=== PATIENT | male | born 1980 | race Caucasian/White ===

== ENCOUNTER 2017-12-25 22:16 | Emergency (ER) | payer BC ==
[2017-12-25 23:00] VITALS: BP 102/60; PULSE 83; TEMP 98.5; BMI 24.5
[2017-12-26] MEDS ORDERED: TETRACAINE 0.5% OPHTH SOLN 2 ML BOTTLE OU ONE (00:24)
[2017-12-26] MEDS ORDERED: ERYTHROMYCIN 0.5% OPHTHALMIC OINTMENT 3.5 GM TUBE OU ONE (00:24)
[2017-12-26] MEDS ORDERED: FLUORESCEIN NA 1 EA STRIP OU ONE (00:24)
--- NOTE | 2017-12-26 00:25 | PDOC ---
History of Present Illness - General Chief Complaint: Eye Problem Stated Complaint: EYE PROBLEM Time Seen by Provider: 12/26/17 00:23 History Source: Patient - History of Present Illness Initial Comments: 12/26/17 01:14 37 year old male c/o foreign body to left while driving , reports a small particle is imbedded in the left iris with irritation. denies vision changes or irritation. Past History - Past Medical History Allergies/Adverse Reactions: Allergies Allergy/AdvReac Type Severity Reaction Status Date / Time No Known Allergies Allergy Verified 12/25/17 22:53 Home Medications: Ambulatory Orders Carbamide Peroxide 6.5% [Debrox -] 5 drop AD BID #1 bottle 05/25/15 COPD: No - Immunization History Immunization Up to Date: No - Suicide/Smoking/Psychosocial Hx Smoking History: Current every day smoker Have you smoked in the past 12 months: Yes Number of Cigarettes Smoked Daily: 20 Information on smoking cessation initiated: No Hx Alcohol Use: No Drug/Substance Use Hx: No Substance Use Type: None Review of Systems - Review of Systems Able to Perform ROS?: Yes Is the patient limited Libyan proficient: No Constitutional: No: Symptoms Reported, See HPI, Chills, Diaphoresis, Fever, Loss of Appetite, Malaise, Night Sweats, Weakness, Weight Stable, Unintentional Wgt. Loss, Unexplained wgt Loss, Other HEENTM: Yes: Other (foreign body in eye) *Physical Exam - Vital Signs Last Vital Signs Temp Pulse Resp BP Pulse Ox 98.5 F 83 16 102/60 100 12/25/17 22:54 12/25/17 22:54 12/25/17 22:54 12/25/17 22:54 12/25/17 22:54 - Physical Exam General Appearance: Yes: Appropriately Dressed HEENT: positive: Other (No Flurescein uptake appreciated to left eye. + foreign body imbedded in eye. ZULAYREARNEST) Medical Decision Making - Medical Decision Making 12/26/17 01:17 A: foreign body in left eye P; tetracaine fluroscein erythromycin ophthalmology follow up tomorrow. *DC/Admit/Observation/Transfer Diagnosis at time of Disposition: Foreign body of eye, intraocular Qualifiers: Encounter type: initial encounter Laterality: left Qualified Code(s): S05.52XA - Penetrating wound with foreign body of left eyeball, initial encounter - Discharge Dispostion Disposition: HOME - Referrals Referrals: Darrick Crawley MD [Primary Care Provider] - Jeovany Thompson MD [Staff Physician] - 24 hours (Follow up tomorrow.) - Patient Instructions Printed Discharge Instructions: How to Get a Foreign Body Out of Your Eye Additional Instructions: conitnue erythromycin every 4 hours while awake. follow up with the eye doctor tomorrow. return to the ER if symptoms worsen. - Post Discharge Activity
[2017-12-26] MEDS ORDERED: TETRACAINE 0.5% OPHTH SOLN 2 ML BOTTLE ONE (00:51)
[2017-12-26] MEDS ORDERED: ERYTHROMYCIN 0.5% OPHTHALMIC OINTMENT 3.5 GM TUBE ONE (00:51)
[2017-12-26] MEDS ORDERED: FLUORESCEIN NA 1 EA STRIP ONE (00:52)
== END 2017-12-26 01:50 | disposition home or self-care (01) ==
LOC: JER 22:16
DX: T15.82XA Foreign body in other and multiple parts of external eye, left eye, initial encounter (principal); X58.XXXA Exposure to other specified factors, initial encounter; Y93.89 Activity, other specified; Y92.89 Other specified places as the place of occurrence of the external cause
CPT/HCPCS: 99281-25

== ENCOUNTER 2019-08-09 06:43 | Emergency (ER) | payer BC ==
[2019-08-09 06:59] VITALS: BP 106/69; PULSE 93; TEMP 98.4; BMI 27.5
--- NOTE | 2019-08-09 07:54 | PDOC ---
History of Present Illness - General Chief Complaint: Chest Pain Stated Complaint: CHEST PAIN Time Seen by Provider: 08/09/19 07:14 - History of Present Illness Initial Comments: Raul Barnard is a 39yo man with no known medical history who presents reporting crushing midsternal chest pain since yesterday. He states that he initially tried to ignore the pain, but it became very severe overnight. He reports that it was up to 8/10 overnight, worse when laying on his side. He also reports worsening of the pain with deep breaths. The pain radiates into his neck and posterior teeth. Mr Barnard denies any associated nausea/vomiting, sweating, lightheadedness, SOB, or cough. He does endorse mild congestion and reports that his son recently had a cold. He denies any recent travel, surgery, immobilization, leg swelling and does not have a family history of early cardiac disease. Past History - Past Medical History Allergies/Adverse Reactions: Allergies Allergy/AdvReac Type Severity Reaction Status Date / Time No Known Allergies Allergy Verified 08/09/19 06:57 Home Medications: Ambulatory Orders Carbamide Peroxide 6.5% [Debrox -] 5 drop AD BID #1 bottle 05/25/15 Ibuprofen [Ibu] 600 mg PO Q8H #60 tablet 08/09/19 COPD: No - Immunization History Immunization Up to Date: No - Suicide/Smoking/Psychosocial Hx Smoking History: Never smoked Have you smoked in the past 12 months: Yes Number of Cigarettes Smoked Daily: 20 Hx Alcohol Use: No Drug/Substance Use Hx: No Substance Use Type: None Review of Systems - Review of Systems Comments:: General: No fevers, no chills, no weight or appetite change, no malaise HEENT: No changes in vision, no changes in hearing, no congestion, no sore throat CV: + chest pain, no palpitations, no LE edema Pulm: No SOB, no cough, no wheezing GI: No nausea or vomiting, no change in bowel habits, no melena : No frequency, no urgency, no dysuria Musc: No back pain, no joint swelling, no recent injury Skin: No rash, no lesions, no erythema Endo: No excessive thirst, no heat/cold intolerance Heme: No unusual bruising or bleeding, no swollen glands Neuro: No syncope, no numbness/tingling, no focal weakness Vasc: No claudication Psych: No recent change in mood, no SI or HI *Physical Exam - Vital Signs Last Vital Signs Temp Pulse Resp BP Pulse Ox 98.4 F 93 H 18 106/69 100 08/09/19 06:58 08/09/19 06:58 08/09/19 06:58 08/09/19 06:58 08/09/19 06:58 - Physical Exam Comments: General: Comfortable, no acute distress HEENT: PERRL, EOMI, MMM, voice normal, normal neck ROM, no LAD Cards: RRR, no murmur appreciated Pulm: Comfortable on room air, clear to auscultation bilaterally Abd: Soft, nontender, nondistended Ext: Atraumatic. No LE edema. ROM intact. WWP. No calf TTP Skin: Normal color, no rashes or lesions Neuro: A&Ox3, CN grossly intact, normal speech, motor/sensory grossly intact and symmetric Psych: Mood appropriate to situation ED Treatment Course - LABORATORY CBC & Chemistry Diagram: 08/09/19 07:43 08/09/19 07:43 - RADIOLOGY Radiology Studies Ordered: Category Date Time Status CHEST PA & LAT [RAD] Stat Radiology 08/09/19 07:25 Ordered Medical Decision Making - Medical Decision Making 08/09/19 07:40 Raul Barnard is a 39yo man with no known medical history who presents reporting positional, pleuritic crushing midsternal chest pain since yesterday. The pain improved with ibuprofen this morning. - Ddx includes ACS though unlikely given age and no comorbidities, musculoskeletal pain, pneumonia. Less likely effusion, pneumothorax as pt is breathing comfortably, no hypoxia. Unlikely aortic abnormality given pt's age, lack of family history, lack of comorbidities. PERC negative - CXR, EKG, CBC, CMP - One trop. If negative, will not repeat as pain started yesterday and ACS is unlikely 08/09/19 07:57 - Reviewed EKG w/ Bhupinder Smith and Esau. NSR, HR 89, normal axis, normal intervals. No ST elevations. Diffuse PA depressions noted. - Given positional midsternal chest pain, EKG w/ PA depressions, recent exposure to viral illness symptoms are most likely due to acute pericarditis - Labs sent, pending 08/09/19 08:25 - Labs reviewed. Trop negative. CBC and chemistry unremarkable. CRP elevated at 1.2, c/w pericardiatis - Bedside echo to be completed by Bhupinder Cifuentes and Raheel to evaluate for effusion or other cardiac abnormalities - Will call PMD to help arrange for follow up 08/09/19 08:43 - CXR with no acute pathology - Echo without effusion, tamponade, wall motion abnormalities or any other acute abnormalities - PMD Dr Crawley office not yet open; will wait until 9am and retry to contact 08/09/19 09:23 - PMD contacted, will see pt in office this afternoon or tomorrow morning and will direct to follow up with cardiology - Pt updated. Discussed home care, return precautions, follow up in detail. Pt understands and agrees with the plan. Discussed with Dr Cricket Brown PGY2 *DC/Admit/Observation/Transfer Diagnosis at time of Disposition: Acute pericarditis Qualifiers: Pericarditis type: unspecified type Qualified Code(s): I30.9 - Acute pericarditis, unspecified - Discharge Dispostion Disposition: HOME Condition at time of disposition: Stable - Prescriptions Prescriptions: Ibuprofen [Ibu] 600 mg PO Q8H #60 tablet - Referrals Referrals: Darrick Crawley MD [Primary Care Provider] - Sunny Dickson MD [Staff Physician] - - Patient Instructions Printed Discharge Instructions: DI for Pericarditis Additional Instructions: Discharge Instructions: You were seen in the emergency department for chest pain. You have been diagnosed with pericarditis, inflammation of the heart lining. Home Care and Follow Up: - You have been prescribed ibuprofen 600mg that should be taken every 8 hours until instructed to stop by your primary doctor or cardiology. Do not wait until pain starts; take it as scheduled every 8 hours. Take ibuprofen with food. - You may take acetaminophen (Tylenol) 650-1000mg every 6-8 hours for continued pain - You should go to Dr Crawley's office this afternoon or tomorrow morning for follow up. He is expecting you and will direct you to follow up with cardiology. - Seek immediate care for worsening symptoms, severe pain, difficulty breathing , lightheadedness, fever to 101F or any other medical emergency. - Post Discharge Activity Forms/Work/School Notes: Back to Work
[2019-08-09 08:02] LABS: BASO % 0.6 % (0-2.0); EOS % 0.9 % (0-4.5); HEMATOCRIT 45.2 % (35.4-49); HEMOGLOBIN 15.4 GM/dL (11.7-16.9); LYMPH % 14.2 % (8-40); MCH 31.4 pg (25.7-33.7); MEAN CELL VOLUME 92.5 fl (80-96); MEAN PLT VOLUME 8.4 fl (7.5-11.1); MONO % 10.2 % (3.8-10.2); NEUT % 74.1 % (42.8-82.8); PLATELET COUNT 208 K/MM3 (134-434); RBC 4.89 M/mm3 (4.00-5.60); RDW 13.5 % (11.9-15.9)
[2019-08-09 08:22] LABS: ALBUMIN 3.9 g/dl (3.4-5.0); BILIRUBIN,TOTAL 0.8 mg/dL (0.2-1); BLOOD UREA NITROGEN 15.1 mg/dL (7-18); CALCIUM 9.2 mg/dL (8.5-10.1); CREATININE 0.9 mg/dL (0.55-1.3); POTASSIUM 4.5 mmol/L (3.5-5.1); TOT PROT 6.2 g/dl (6.4-8.2)
--- NOTE | 2019-08-09 09:07 | PDOC ---
Attending Attestation - Resident Resident Name: Rosalba Brown - ED Attending Attestation I have performed the following: I have examined & evaluated the patient, The case was reviewed & discussed with the resident, I agree w/resident's findings & plan, Exceptions are as noted - HPI HPI: 08/09/19 09:07 39 years old with no significant past medical history presents emergency Department 1 day of severe left-sided chest discomfort pleuritic better when sitting up worse with lying down moderate in severity 8 out of 10 intermittent nonexertional very positional changes when he lays on his left side of his right side. Described as a sharp pain. No travel child was sick with a viral illness approximately 1 week ago. ROS: A complete review of 10 out of 10 review of systems is taken and is negative apart from what is previously mentioned below and in the HPI. - Physicial Exam PE: 08/09/19 09:09 Vitals: Triage Vital signs reviewed General Appearance: no acute distress, well nourished well developed, Head: Atraumatic, Chest Wall: Nontender Cardiac: Regular rate and rhythym, no murmurs, no rubs, no gallops, Lungs: Clear to auscultation bilateral, good air movement bilaterally, Abdomen: Soft, non distended, normal bowel sounds, non tender to palpation Extremities: Full range of motion to all extremities, no cyanosis, clubbing, or edema Skin: Warm and dry, no rashes or lesions, no rash, no petechiae Psych: normal mood, normal affect - Medical Decision Making 08/09/19 09:31 EKG demonstrates diffuse [place] depressions no ST elevations History and examination consistent with pericarditis troponin negative PERC negative Patient feels much better after NSAIDs we'll discuss his case with his primary care provider. He will follow up with cardiology either later today or tomorrow Findings, the need for follow-up and strict return instructions discussed patient.
[2019-08-09] MEDS ORDERED: LIDOCAINE HCL 2% (20ML MULTI-DOSE VIAL) NR ONE (09:14)
--- NOTE | 2019-08-09 11:25 | EKG ---
Test Reason : Blood Pressure : / mmHG Vent. Rate : 089 BPM Atrial Rate : 089 BPM P-R Int : 166 ms QRS Dur : 086 ms QT Int : 322 ms P-R-T Axes : 072 062 052 degrees QTc Int : 391 ms NORMAL SINUS RHYTHM NORMAL ECG NO PREVIOUS ECGS AVAILABLE Confirmed by DAPHNEY JUAREZ MD ([id number]) on 08/09/2019 11:24:45 AM Referred By: Confirmed By:DAPHNEY JUAREZ MD
[2019-08-09 11:56] LABS: ERYTHROCYTE SEDIMENTATION RATE 1 mm/hr (0-10)
== END 2019-08-09 09:39 | disposition home or self-care (01) ==
LOC: JER 06:43
DX: I30.9 Acute pericarditis, unspecified (principal)
CPT/HCPCS: 36415; 71046-TC-FY; 80053; 82550; 83735; 84484; 85025; 85651; 86140; 93005; 93010; 99282-25